=== PATIENT | male | born 1960 | race Caucasian/White ===

== ENCOUNTER → 2017-12-04 | Outpatient (CLI) | payer SELFPAY ==
[~2017-12-04] VITALS: Ht 175.3 cm; Wt 72.6 kg
[~2017-12-04] MED LIST: FISH OIL 1,0001 EAC7 PO
== END | disposition home or self-care (01) ==
LOC: AMB 12:30
DX: Z12.11 Encounter for screening for malignant neoplasm of colon (principal); K21.0 Gastro-esophageal reflux disease with esophagitis; K64.8 Other hemorrhoids; K29.70 Gastritis, unspecified, without bleeding
CPT/HCPCS: 88305; 88342 TC; J2250